=== PATIENT | female | born 1990 | race Caucasian/White ===

== ENCOUNTER 2020-11-02 11:05 | Emergency (ER) | payer SELFPAY ==
[~2020-11-02] VITALS: Ht 68 cm; Wt 165.1 kg
[2020-11-02 11:43] LABS: BASOPHILS # (AUTO) 0.1 10^3/uL (0.0-0.1); BASOPHILS % (AUTO) 1 % (0-10); EOSINOPHILS # (AUTO) 0.2 10^3/uL (0.0-0.3); EOSINOPHILS % (AUTO) 2 % (0-10); HEMATOCRIT 44 % (35-52); HEMOGLOBIN 15.3 g/dL (11.5-16.0); LYMPHOCYTES % (AUTO) 29 % (12-44); MEAN CORPUSCULAR HEMOGLOBIN 34 pg (25-34); MEAN CORPUSCULAR HGB CONC 35 g/dL (32-36); MEAN CORPUSCULAR VOLUME 97 fL (80-99); MEAN PLATELET VOLUME 10.3 fL (9.0-12.2); MONOCYTES # (AUTO) 0.6 10^3/uL (0.0-1.0); MONOCYTES % (AUTO) 6 % (0-12); NEUTROPHILS # (AUTO) 6.6 10^3/uL (1.8-7.8); NEUTROPHILS % (AUTO) 63 % (42-75); PLATELET COUNT 318 10^3/uL (130-400); WHITE BLOOD COUNT 10.4 10^3/uL (4.3-11.0)
[2020-11-02] MEDS ORDERED: cloNIDine 0.1 MG (CATAPRES) TAB PO ONE (11:45)
--- NOTE | 2020-11-02 11:45 | ED General ---
General Chief Complaint: General Problems/Pain Stated Complaint: DIZZINESS Nursing Triage Note: Pt reports a "funny feeling in head, like a dropping sensation in my brain." Pt reports this has happened before, however in the past it was in a different part of the brain, the back of the head. Pt denies any headache. Pt reports losing balance immediately with the sensation and was leaning to the left. Pt reports legs gave out, but pt didn't fall. Pt reports being unable to focus vision for just a few seconds. Pt reports brain fog at this time. Nursing Sepsis Screen: No Definite Risk Source of Information: Patient Exam Limitations: No Limitations History of Present Illness Date Seen by Provider: Nov 02, 2020 Time Seen by Provider: 11:42 Initial Comments To ER accompanied by mother with reports of a "dropping sensation" in her brain. This was followed by her legs giving out on her and some brain fogginess. She is on Pristiq and Abilify, neither of these have had dosage changes nor are either of these new. She had a similar episode about 3 weeks ago. Timing/Duration: 1-3 Hours Severity: Moderate Associated Systoms: Denies Symptoms Allergies and Home Medications Allergies Coded Allergies: latex (Verified Allergy, Unknown, 11/02/20) Patient Home Medication List Home Medication List Reviewed: Yes Review of Systems Review of Systems Constitutional: see HPI EENTM: see HPI Respiratory: no symptoms reported Cardiovascular: no symptoms reported Genitourinary: no symptoms reported Musculoskeletal: no symptoms reported Skin: no symptoms reported Psychiatric/Neurological: See HPI Hematologic/Lymphatic: No Symptoms Reported Immunological/Allergic: no symptoms reported Past Beblmby-Wljdhi-Mjkdzy Hx Patient Social History Alcohol Use: Occasionally Uses Smoking Status: Current Everyday Smoker Type Used: Cigarettes 2nd Hand Smoke Exposure: Yes Recent Infectious Disease Expo: No Recent Hopitalizations: No Past Medical History Surgeries: Yes (R knee scope, spinal cord stimulator) Orthopedic Respiratory: No Cardiac: No Neurological: No Genitourinary: No Gastrointestinal: No Musculoskeletal: Yes ("runner's knee") Arthritis HEENT: No Cancer: No Psychosocial: Yes ADD/ADHD, Anxiety, Depression Psoriasis Blood Disorders: No Physical Exam Vital Signs Vital Signs - First Documented 11/02/20 11:10 Temp 36.8 Pulse 110 Resp 20 B/P (MAP) 183/100 (127) Pulse Ox 98 O2 Delivery Room Air Capillary Refill : Less Than 3 Seconds Height, Weight, BMI Height: '" Weight: lbs. oz. kg; 357.00 BMI Method: General Appearance: No Apparent Distress, WD/WN, Other (She had transient blurred vision but states that her vision is back to normal now. She does have some sensation of loss of balance and mental fogginess that persist.) Eyes: Bilateral Eye Normal Inspection, Bilateral Eye PERRL, Bilateral Eye EOMI HEENT: PERRL/EOMI, TMs Normal Respiratory: No Accessory Muscle Use, No Respiratory Distress Gastrointestinal: Non Tender, Soft Extremity: Normal Capillary Refill, Normal Inspection Neurologic/Psychiatric: Alert, Oriented x3 Comments Blood pressure is about 170s over 100 on a couple of readings. She states that normally she is about 120s over 80s. Progress/Results/Core Measures Suspected Sepsis Recent Fever Within 48 Hours: No Infection Criteria Present: None New/Unexplained Altered Menta: No Sepsis Screen: No Definite Risk SIRS Temperature: Pulse: 110 Respiratory Rate: 20 Laboratory Tests 11/02/20 11:15: White Blood Count 10.4 Blood Pressure 183 /100 Mean: 127 Laboratory Tests 11/02/20 11:15: Creatinine 0.75, Platelet Count 318, Total Bilirubin 0.4 Results/Orders Lab Results Laboratory Tests Test 11/02/20 11:15 11/02/20 11:20 11/02/20 11:21 11/02/20 12:56 Range/Units White Blood Count 10.4 4.3-11.0 10^3/uL Red Blood Count 4.51 3.80-5.11 10^6/uL Hemoglobin 15.3 11.5-16.0 g/dL Hematocrit 44 35-52 % Mean Corpuscular Volume 97 80-99 fL Mean Corpuscular Hemoglobin 34 25-34 pg Mean Corpuscular Hemoglobin Concent 35 32-36 g/dL Red Cell Distribution Width 13.2 10.0-14.5 % Platelet Count 318 130-400 10^3/uL Mean Platelet Volume 10.3 9.0-12.2 fL Immature Granulocyte % (Auto) 1 % Neutrophils (%) (Auto) 63 42-75 % Lymphocytes (%) (Auto) 29 12-44 % Monocytes (%) (Auto) 6 0-12 % Eosinophils (%) (Auto) 2 0-10 % Basophils (%) (Auto) 1 0-10 % Neutrophils # (Auto) 6.6 1.8-7.8 10^3/uL Lymphocytes # (Auto) 3.0 1.0-4.0 10^3/uL Monocytes # (Auto) 0.6 0.0-1.0 10^3/uL Eosinophils # (Auto) 0.2 0.0-0.3 10^3/uL Basophils # (Auto) 0.1 0.0-0.1 10^3/uL Immature Granulocyte # (Auto) 0.1 0.0-0.1 10^3/uL Sodium Level 136 135-145 MMOL/L Potassium Level 3.7 3.6-5.0 MMOL/L Chloride Level 99 98-107 MMOL/L Carbon Dioxide Level 25 21-32 MMOL/L Anion Gap 12 5-14 MMOL/L Blood Urea Nitrogen 7 7-18 MG/DL Creatinine 0.75 0.60-1.30 MG/DL Estimat Glomerular Filtration Rate > 60 BUN/Creatinine Ratio 9 Glucose Level 100 70-105 MG/DL Calcium Level 9.7 8.5-10.1 MG/DL Corrected Calcium 8.5-10.1 MG/DL Total Bilirubin 0.4 0.1-1.0 MG/DL Aspartate Amino Transf (AST/SGOT) 40 H 5-34 U/L Alanine Aminotransferase (ALT/SGPT) 37 0-55 U/L Alkaline Phosphatase 107 40-136 U/L Total Protein 8.5 H 6.4-8.2 GM/DL Albumin 4.9 H 3.2-4.5 GM/DL Serum Test, Qualitative NEGATIVE NEGATIVE Urine Color YELLOW Urine Clarity CLEAR Urine pH 8.0 5-9 Urine Specific [place] 1.015 L 1.016-1.022 Urine Protein NEGATIVE NEGATIVE Urine Glucose (UA) NEGATIVE NEGATIVE Urine Ketones NEGATIVE NEGATIVE Urine Nitrite NEGATIVE NEGATIVE Urine Bilirubin NEGATIVE NEGATIVE Urine Urobilinogen 0.2 < = 1.0 MG/DL Urine Leukocyte Esterase NEGATIVE NEGATIVE Urine RBC (Auto) NEGATIVE NEGATIVE Urine RBC NONE /HPF Urine WBC RARE /HPF Urine Squamous Epithelial Cells 2-5 /HPF Urine Crystals PRESENT H /LPF Urine Amorphous Sediment MOD ATILIO PHOSPHATE H /LPF Urine Bacteria NEGATIVE /HPF Urine Casts NONE /LPF Urine Mucus NEGATIVE /LPF Urine Culture Indicated NO Glucometer 104 70-110 MG/DL D-Dimer 0.38 0.00-0.49 UG/ML My Orders Orders - [facility] Hcg,Qualitative Serum (11/02/20 11:36) Cbc With Automated Diff (11/02/20 11:36) Comprehensive Metabolic Panel (11/02/20 11:36) Ct Head Wo (11/02/20 11:36) Ua Culture If Indicated (11/02/20 11:36) Clonidine Tablet (Catapres Tablet) (11/02/20 11:45) Fibrin Degradation Products (11/02/20 11:45) Metoprolol Tartrate Injection (Lopressor (11/02/20 13:15) Medications Given in ED Current Medications Medications Dose Ordered Sig/Shad Route Start Time Stop Time Status Last Admin Dose Admin Clonidine HCl 0.1 mg ONCE ONCE PO 11/02/20 11:45 11/02/20 11:46 DC 11/02/20 11:47 0.1 MG Metoprolol Tartrate 5 mg ONCE ONCE IV 11/02/20 13:15 11/02/20 13:16 DC 11/02/20 13:28 5 MG Vital Signs/I&O 11/02/20 11:10 Temp 36.8 Pulse 110 Resp 20 B/P (MAP) 183/100 (127) Pulse Ox 98 O2 Delivery Room Air Capillary Refill : Less Than 3 Seconds Blood Pressure Mean: 127 Departure Communication (Admissions) 1337-blood pressure is now 145/105 heart rate of 80 sinus. She is feeling better now that we have dropped her blood pressure. Her symptoms may be entirely related to the hypertension. I am hesitant to start her on anything consistently because she states that she normally runs 120s over 80s. I will have her follow-up with Ashu phillips later this week for recheck. Impression Primary Impression: Hypertension Disposition: HOME, SELF-CARE Condition: Stable Departure-Patient Inst. Decision time for Depature: 13:38 Referrals: [facility] – [place] (PCP) Primary Care Physician ASHU KOCH PA (Family) Primary Care Physician Patient Instructions: High Blood Pressure (DC) Add. Discharge Instructions: 1. Follow-up with Ashu Koch later this week for recheck. Return to ER for any worsening symptoms or other concerns. All discharge instructions reviewed with patient and/or family. Voiced understanding. Copy Copies To 1: ASHU BLACKMON MD, PETER J APRN Nov 02, 2020 11:44
[2020-11-02 11:46] LABS: BILIRUBIN,URINE NEGATIVE (NEGATIVE); CLARITY,URINE CLEAR; COLOR,URINE YELLOW; GLUCOSE, URINE (UA) NEGATIVE (NEGATIVE); KETONES,URINE NEGATIVE (NEGATIVE); LEUKOCYTE ESTERASE ,URINE NEGATIVE (NEGATIVE); NITRITE,URINE NEGATIVE (NEGATIVE); PROTEIN,URINE NEGATIVE (NEGATIVE)
[2020-11-02 11:47] LABS: ALBUMIN 4.9 GM/DL (3.2-4.5); CHLORIDE 99 MMOL/L (98-107); POTASSIUM 3.7 MMOL/L (3.6-5.0); SODIUM 136 MMOL/L (135-145)
[2020-11-02 11:48] LABS: CALCIUM 9.7 MG/DL (8.5-10.1)
[2020-11-02 11:49] LABS: GLUCOSE 100 MG/DL (70-105); TOTAL PROTEIN 8.5 GM/DL (6.4-8.2)
[2020-11-02 11:50] LABS: CARBON DIOXIDE 25 MMOL/L (21-32)
[2020-11-02 11:51] LABS: BILIRUBIN,TOTAL 0.4 MG/DL (0.1-1.0)
[2020-11-02 11:53] LABS: BACTERIA,URINE NEGATIVE /HPF; WBC,URINE RARE /HPF
[2020-11-02 11:53] LABS: ALKALINE PHOSPHATASE 107 U/L (40-136); CREATININE SERUM 0.75 MG/DL (0.60-1.30); GFR ESTIMATED > 60
[2020-11-02 11:54] LABS: BUN/CREATININE RATIO 9
[2020-11-02 11:54] LABS: AMORPHOUS SEDIMENT,UR MOD AMOR PHOSPHATE /LPF
[2020-11-02 11:56] LABS: ALANINE AMINOTRANSFERASE 37 U/L (0-55)
--- NOTE | 2020-11-02 12:49 | Diagnostic Imaging Report ---
INDICATION: Headache and dizziness. TECHNIQUE: Multiple contiguous axial images were obtained through the brain without the use of intravenous contrast. Auto Exposure Controls were utilized during the CT exam to meet ALARA standards for radiation dose reduction. COMPARISON: There is no prior study for comparison. FINDINGS: There are no extra-axial fluid collections. No intracranial hemorrhage. No intracranial mass or mass effect. No midline shift. The ventricles are normal in size and position. There are no focal parenchymal abnormalities in the brain. The calvarial windows appear unremarkable. IMPRESSION: Negative noncontrast brain CT. Dictated by: Dictated on workstation # [id number]
[2020-11-02] MEDS ORDERED: meTOprolol 5 MG/5 ML (LOPRESSOR) VIAL IV ONE (13:15)
[2020-11-02 14:09] VITALS: BP 142/106
== END 2020-11-02 14:09 | disposition home or self-care (01) ==
LOC: EDUNIT# 11:05 → ER 11:07
DX: I10 Essential (primary) hypertension (principal); F17.210 Nicotine dependence, cigarettes, uncomplicated; Z91.040 Latex allergy status
CPT/HCPCS: 36415; 70450; 80053; 81000; 82962; 84703; 85025; 85379

== ENCOUNTER 2022-04-24 12:25 | Emergency (ER) | payer BC ==
[~2022-04-24] VITALS: Ht 165 cm; Wt 58.9 kg
[2022-04-24] MEDS ORDERED: diphenhydrAMINE 50 MG/ML INJ (BENADRYL) IVP ONE (13:00)
[2022-04-24] MEDS ORDERED: PROCHLORPERAZINE 10 MG/2ML INJ (COMPAZINE) IV ONE (13:00)
[2022-04-24] MEDS ORDERED: KETOROLAC 30 MG/ML VIAL IVP ONE (13:00)
[2022-04-24] MEDS ORDERED: NS IV 1000 ML 1,000 ML IV STA (13:00)
--- NOTE | 2022-04-24 13:06 | ED Headache ---
General Chief Complaint: Head/Cervical Problems Stated Complaint: SHERMAN Nursing Triage Note: PT PRESENTS TO ED VIA POV FROM HOME WITH COMPLAINTS OF SHERMAN SINCE SUNDAY AFTER HAVING SEIZURE LIKE ACTIVITY AT WORK. PT REPORTS SHE HAS HAD A SIMILAR SEIZURE EPISODE LAST YEAR BUT DOES NOT TAKE ANY DAILY MEDICATIONS FOR IT. Source: patient Exam Limitations: no limitations History of Present Illness Date Seen by Provider: Apr 24, 2022 Time Seen by Provider: 13:03 Initial Comments Patient is a 32-year-old female with a history of asthma who presents the ED with headache and possible seizure. Patient states on Sunday she was standing at work when she felt this spasming pressure to the top part of her head that resulted in dark vision. She states she reports spots in her vision. She states her legs became weak had to sit down for a few minutes. Since then she has been having this dull pressure head pain. She reports intermittent sharp pain that started 2 days ago on the right side of her top of her head that increases. Rates pain 6 out of 10. Has been taking ibuprofen. She states since then her cognitive function seems to be delayed. Difficulty finding words she states she dropped things. Had weakness diffuse throughout her extremities but that is improving. She had a similar occasion about a year ago and had a negative work-up. She went to her primary care physician who thought this was related to her blood pressure. Her blood pressure was elevated then as well as slightly elevated today. She denies any vomiting, nausea, chest pain, cough, shortness of breath, Ilir pain or concern for . She has no current weakness at this time. She is complaining of this headache. She has had intermittent similar spells since last year that typically resolves fairly quick. She states she has been sleeping a lot. Denies of any blood disorder. No recent travels or surgeries. Allergies and Home Medications Allergies Coded Allergies: latex (Verified Allergy, Unknown, 11/02/20) Patient Home Medication List Home Medication List Reviewed: Yes Review of Systems Review of Systems Constitutional: No chills, No diaphoresis, No malaise; weakness Eyes: Denies Blurred Vision, Denies Drainage, Denies Decreased Acuity, Denies Photophobia Ears, Nose, Mouth, Throat: denies ear pain, denies ear discharge Respiratory: No cough, No dyspnea on exertion, No short of breath, No wheezing Cardiovascular: No chest pain Gastrointestinal: No abdominal pain, No diarrhea, No nausea, No vomiting Genitourinary: No decreased output, No discharge Musculoskeletal: No back pain, No joint pain, No muscle pain, No muscle stiffness Skin: No change in color, No change in hair/nails Psychiatric/Neurological: Headache, Weakness Past Bydrdki-Ldjwip-Zjaglb Hx Patient Social History Tobacco Use?: Yes Tobacco type used: Cigarettes Smoking Status: Current Everyday Smoker Smokeless Tobacco Frequency: Current Everyday User Substance use?: No Alcohol Use?: No Alcohol Frequency: Couple times a week Pt feels they are or have been: No Past Medical History Surgery/Hospitalization HX: ADHD, Surgeries: Yes (R knee scope, spinal cord stimulator) Orthopedic Respiratory: No Cardiac: No Neurological: No Genitourinary: No Gastrointestinal: No Musculoskeletal: Yes ("runner's knee") Arthritis HEENT: No Cancer: No Psychosocial: Yes ADD/ADHD, Anxiety, Depression Psoriasis Blood Disorders: No Physical Exam Vital Signs Vital Signs - First Documented 04/24/22 12:50 Temp 36.8 Pulse 131 Resp 18 B/P (MAP) 167/96 (119) Pulse Ox 98 Capillary Refill : Less Than 3 Seconds Height, Weight, BMI Height: '" Weight: lbs. oz. kg; 21.00 BMI Method: General Appearance: WD/WN, no apparent distress HEENT: PERRL/EOMI, normal ENT inspection, TMs normal, pharynx normal Neck: non-tender, full range of motion, supple, normal inspection Cardiovascular: regular rate, rhythm, no edema, no gallop, no JVD Respiratory: chest non-tender, lungs clear, normal breath sounds, no respiratory distress, no accessory muscle use Gastrointestinal: normal bowel sounds, non tender, soft, no organomegaly Back: normal inspection, no CVA tenderness, no vertebral tenderness Extremities: normal range of motion, non-tender, normal inspection, no pedal edema [place] Nerves: normal hearing, normal speech, PERRL Coordination/Gait: normal finger to nose, normal gait Motor/Sensory: no motor deficit, no sensory deficit, no pronator drift Skin: normal color, warm/dry Progress/Results/Core Measures Results/Orders Lab Results Laboratory Tests Test 04/24/22 13:24 Range/Units White Blood Count 9.1 4.3-11.0 10^3/uL Red Blood Count 4.09 3.80-5.11 10^6/uL Hemoglobin 13.9 11.5-16.0 g/dL Hematocrit 40 35-52 % Mean Corpuscular Volume 97 80-99 fL Mean Corpuscular Hemoglobin 34 25-34 pg Mean Corpuscular Hemoglobin Concent 35 32-36 g/dL Red Cell Distribution Width 13.2 10.0-14.5 % Platelet Count 291 130-400 10^3/uL Mean Platelet Volume 9.6 9.0-12.2 fL Immature Granulocyte % (Auto) 0 % Neutrophils (%) (Auto) 83 H 42-75 % Lymphocytes (%) (Auto) 6 L 12-44 % Monocytes (%) (Auto) 8 0-12 % Eosinophils (%) (Auto) 2 0-10 % Basophils (%) (Auto) 1 0-10 % Neutrophils # (Auto) 7.6 1.8-7.8 10^3/uL Lymphocytes # (Auto) 0.5 L 1.0-4.0 10^3/uL Monocytes # (Auto) 0.8 0.0-1.0 10^3/uL Eosinophils # (Auto) 0.2 0.0-0.3 10^3/uL Basophils # (Auto) 0.1 0.0-0.1 10^3/uL Immature Granulocyte # (Auto) 0.0 0.0-0.1 10^3/uL Neutrophils % (Manual) 83 % Lymphocytes % (Manual) 6 % Monocytes % (Manual) 9 % Eosinophils % (Manual) 2 % Blood Morphology Comment NORMAL Sodium Level 135 135-145 MMOL/L Potassium Level 3.9 3.6-5.0 MMOL/L Chloride Level 102 98-107 MMOL/L Carbon Dioxide Level 22 21-32 MMOL/L Anion Gap 11 5-14 MMOL/L Blood Urea Nitrogen 8 7-18 MG/DL Creatinine 0.79 0.60-1.30 MG/DL Estimat Glomerular Filtration Rate 101 BUN/Creatinine Ratio 10 Glucose Level 101 70-105 MG/DL Calcium Level 9.4 8.5-10.1 MG/DL Corrected Calcium 9.1 8.5-10.1 MG/DL Magnesium Level 1.8 1.6-2.4 MG/DL Total Bilirubin 0.3 0.1-1.0 MG/DL Aspartate Amino Transf (AST/SGOT) 54 H 5-34 U/L Alanine Aminotransferase (ALT/SGPT) 36 0-55 U/L Alkaline Phosphatase 86 40-136 U/L Total Protein 7.2 6.4-8.2 GM/DL Albumin 4.4 3.2-4.5 GM/DL My Orders Orders - TIEN MISHRA Ct Head Wo (04/24/22 13:00) Cbc With Automated Diff (04/24/22 13:00) Comprehensive Metabolic Panel (04/24/22 13:00) Magnesium (04/24/22 13:00) Iv/Invasive Line Insertion .IV start (04/24/22 13:00) Ns Iv 1000 Ml (Sodium Chloride 0.9%) (04/24/22 13:00) Prochlorperazine Injection (Compazine In (04/24/22 13:00) Ketorolac Injection (Toradol Injection) (04/24/22 13:00) Diphenhydramine Injection (Benadryl Inje (04/24/22 13:00) Manual Differential (04/24/22 13:24) Medications Given in ED Current Medications Medications Dose Ordered Sig/Shad Route Start Time Stop Time Status Last Admin Dose Admin Diphenhydramine HCl 25 mg ONCE ONCE IVP 04/24/22 13:00 04/24/22 13:02 DC 04/24/22 13:19 25 MG Ketorolac Tromethamine 30 mg ONCE ONCE IVP 04/24/22 13:00 04/24/22 13:02 DC 04/24/22 13:19 30 MG Prochlorperazine Edisylate 10 mg ONCE ONCE IV 04/24/22 13:00 04/24/22 13:01 DC 04/24/22 13:19 10 MG Vital Signs/I&O 04/24/22 04/24/22 12:50 14:33 Temp 36.8 Pulse 131 110 Resp 18 16 B/P (MAP) 167/96 (119) 154/87 Pulse Ox 98 98 Blood Pressure Mean: 119 Departure Communication (PCP) Patient without any current focal neural deficits. CT scan of the head negative for acute abnormality such as hemorrhaging, mass or obvious stroke. Patient lab work was otherwise unremarkable and reassuring. Similar episode a year ago with short episodes over the past year. Initially concern for possible seizure. Patient was given migraine cocktail with resolution of pain. Denies history of migraines. Denies worst headache of her life. Blood pressure 154/87. Discussed to follow-up outpatient Jeff with her elevated blood pressure. She has no meningeal signs. No fever. Denies of any urinary symptoms. Due to her cur rent complaints and frequent episodes over the past year would be warranted to see a neurologist. Discussed no driving until cleared by neurology. Does not appear to be a tonic-clonic type seizure. Symptoms do not appear to be seizure however due to her cognitive changes after these episodes with her headache may be warranted follow-up with neurology. If any worsening symptoms return back to ED for further evaluation. Patient was slightly tachycardic but was tachycardic with her last visit sat 110. She had a negative D-dimer with her last visit and states this feels very similar in 2020. She has no current chest pain or short ness of breath. Continue monitoring blood pressure. He was found to be hypertensive with her last visit was given clonidine with improvement. Hesitant to start her on medication as she states her blood pressure typically runs 120 over 80s. Concerning for the tachycardia at 110. She states she will follow-up outpatient. Impression Primary Impression: Headache Disposition: HOME, SELF-CARE Condition: Stable Departure-Patient Inst. Decision time for Depature: 14:27 [address]errals: [facility] – [place] (PCP) Primary Care Physician ASHU MERCEDES (Family) Primary Care Physician Patient Instructions: Headache, Adult Add. Discharge Instructions: Arjun neurology [phone] [phone] [phone] All discharge instructions reviewed with patient and/or family. Voiced understanding. Work/School Note: Work Release Form Date Seen in the Emergency Department: Apr 24, 2022 Return to Work: Apr 26, 2022 TIEN MISHRA Apr 24, 2022 13:06
[2022-04-24 13:30] LABS: BASOPHILS # (AUTO) 0.1 10^3/uL (0.0-0.1); BASOPHILS % (AUTO) 1 % (0-10); EOSINOPHILS # (AUTO) 0.2 10^3/uL (0.0-0.3); EOSINOPHILS % (AUTO) 2 % (0-10); HEMATOCRIT 40 % (35-52); HEMOGLOBIN 13.9 g/dL (11.5-16.0); LYMPHOCYTES # (AUTO) 0.5 10^3/uL (1.0-4.0); LYMPHOCYTES % (AUTO) 6 % (12-44); MEAN CORPUSCULAR HEMOGLOBIN 34 pg (25-34); MEAN CORPUSCULAR HGB CONC 35 g/dL (32-36); MEAN CORPUSCULAR VOLUME 97 fL (80-99); MEAN PLATELET VOLUME 9.6 fL (9.0-12.2); MONOCYTES # (AUTO) 0.8 10^3/uL (0.0-1.0); MONOCYTES % (AUTO) 8 % (0-12); NEUTROPHILS # (AUTO) 7.6 10^3/uL (1.8-7.8); NEUTROPHILS % (AUTO) 83 % (42-75); PLATELET COUNT 291 10^3/uL (130-400); WHITE BLOOD COUNT 9.1 10^3/uL (4.3-11.0)
[2022-04-24 13:41] LABS: ALBUMIN 4.4 GM/DL (3.2-4.5); POTASSIUM 3.9 MMOL/L (3.6-5.0)
[2022-04-24 13:43] LABS: CALCIUM 9.4 MG/DL (8.5-10.1)
[2022-04-24 13:44] LABS: TOTAL PROTEIN 7.2 GM/DL (6.4-8.2)
[2022-04-24 13:46] LABS: BILIRUBIN,TOTAL 0.3 MG/DL (0.1-1.0)
[2022-04-24 13:47] LABS: CREATININE SERUM 0.79 MG/DL (0.60-1.30)
[2022-04-24 13:51] LABS: MAGNESIUM 1.8 MG/DL (1.6-2.4)
--- NOTE | 2022-04-24 14:03 | Diagnostic Imaging Report ---
EXAMINATION: CT brain without contrast from 04/24/2022. TECHNIQUE: Multiple contiguous axial images were obtained through the brain without the use of intravenous contrast. Auto Exposure Controls were utilized during the CT exam to meet ALARA standards for radiation dose reduction. INDICATION: Seizure five days ago. Headache since. Prior history of seizures. COMPARISON: 11/02/2020. FINDINGS: There is no hemorrhage or infarct. No mass, mass effect, or midline shift. No hydrocephalus. Paranasal sinuses and mastoid air cells are clear. Calvarium appears intact. IMPRESSION: 1. No acute intracranial process. Dictated by: Dictated on workstation # [id number]
[2022-04-24 14:08] LABS: EOSINOPHILS % (MANUAL) 2 %; LYMPHOCYTES % (MANUAL) 6 %; MONOCYTES % (MANUAL) 9 %; NEUTROPHILS % (MANUAL) 83 %
[2022-04-24 14:09] LABS: RBC MORPH NORMAL
[2022-04-24 14:33] VITALS: BP 154/87
== END 2022-04-24 14:33 | disposition home or self-care (01) ==
LOC: EDUNIT# 12:25 → ER 12:27
DX: R51.9 Headache, unspecified (principal); R00.0 Tachycardia, unspecified; F17.210 Nicotine dependence, cigarettes, uncomplicated; F17.220 Nicotine dependence, chewing tobacco, uncomplicated
CPT/HCPCS: 36415; 70450; 80053; 83735; 85007; 85027